=== PATIENT | male | born 1980 | race Two or more races ===

== ENCOUNTER 2020-04-29 00:54 | Emergency (ER) | payer OTHER ==
[2020-04-29] MEDS ORDERED: Ondansetron 4 MG/2 ML SDV IVPUSH ONE (01:25)
[2020-04-29] MEDS ORDERED: Sodium Chloride 0.9% 2.5 ML Syringe FLUSH PRN (01:25)
[2020-04-29] MEDS ORDERED: Sodium Chloride 0.9% 10 ML Syringe FLUSH PRN (01:25)
[2020-04-29] MEDS ORDERED: Ketorolac 30 MG/ML SDV IVPUSH ONE (01:25)
[2020-04-29] MEDS ORDERED: Sodium Chloride 0.9% 1,000 ML IV ONE (01:25)
--- NOTE | 2020-04-29 01:59 | CR ---
Indication: Shortness of breath, COVID positive Technique: Chest 1 view Comparison: Chest x-ray 09/05/2019 Findings/Impression: Cardiovascular and mediastinum: Heart size and vasculature are normal in caliber and appearance. Lungs and pleural space: No pleural effusion or pneumothorax. Slight hazy retrocardiac opacity suspicious for pneumonia in this setting. Bones and soft tissues: No acute findings. Dictated by Mariano Evangelista MD @ Apr 29 2020 1:58AM Signed by Dr. Mariano Evangelista @ Apr 29 2020 1:59AM
[2020-04-29 02:02] LABS: BLOOD UREA NITROGEN,BUN 11 mg/dL (7.0-18.0); CARBON DIOXIDE,CO2 26.5 mmol/L (21.0-32.0); CHLORIDE,CL 96 mmol/L (98-107); GLUCOSE RANDOM 94 mg/dL (74-106); POTASSIUM,K 3.5 mmol/L (3.5-5.1); SODIUM,NA 136 mmol/L (136-148)
[2020-04-29] MEDS ORDERED: cefTRIAXone 1 GM in Sodium Chloride 0.9% 50 ML IV ONE (02:12)
[2020-04-29] MEDS ORDERED: Azithromycin 250 MG Tab PO ONE (02:12)
[2020-04-29] MEDS ORDERED: cefTRIAXone 1 GM in Premix Bag 1 BAG IV ONE (02:13)
--- NOTE | 2020-04-29 02:17 | EDM.PDOC ---
ED HPI GENERAL MEDICAL PROBLEM - General Chief Complaint: General Stated Complaint: FEVER FOR 7 DAYS, COVID POSITIVE Time Seen by Provider: 04/29/20 01:15 - History of Present Illness INITIAL COMMENTS - FREE TEXT/NARRATIVE: HISTORY AND PHYSICAL: History of present illness: Is a 39-year-old gentleman who presents ER today secondary to persistent fever x7 days after being diagnosed with coronavirus. Patient is having a cough. Patient denies any nausea or vomiting. Patient has had multiple episodes of loose stool diarrhea. Patient denies any dysuria, frequency, urgency. Patient denies any abdominal discomfort. Patient is complaining of headaches. Patient denies any sore throat. Patient is not complaining of any shortness of breath. Patient denies any history of hypertension, diabetes, liver, lung, kidney problems. Patient denies any tobacco alcohol or drugs. Patient has no known drug allergies. Review of systems: As per history of present illness and below otherwise all systems reviewed and negative. Past medical history: As per history of present illness and as reviewed below otherwise noncontributory. Surgical history: As per history of present illness and as reviewed below otherwise noncontribut ory. Social history: No reported history of drug or alcohol abuse. Family history: As per history of present illness and as reviewed below otherwise noncontributory. Physical exam: Constitutional: Patient is oriented to person, place, and time. Appears well- developed and well-nourished. No distress. HEENT: Moist mucous membranes Head: Normocephalic and atraumatic Eyes: Right eye exhibits no discharge. Left eye exhibits no discharge. No scleral icterus Neck: Normal range of motion. No tracheal deviation present. Cardiovascular: Normal rate and regular rhythm. Pulmonary: Effort normal, no respiratory distress. Abdominal: No distention Musculoskeletal: Normal range of motion Neurologic: Alert and oriented to person, place and time. Skin: [place], warm and dry. Psychiatric: Normal mood and affect. Behavior is normal. Judgment and thought content normal. Nursing note and vital signs have been reviewed Diagnostics: CBC, CMP, urinalysis within normal limits. Pulse ox 98% on room air. Chest x-ray with question retrocardiac infiltrate. Therapeutics: NSS x1 L Zofran 4 mg IV Toradol 30 mg IV Rocephin 1 g IV Zithromax 500 mg p.o. Assessment and plan: This is a 39-year-old gentleman who presents ER today who is positive for coronavirus with persistent fever x1 week. Patient's x-ray reveals positive retrocardiac infiltrate. Given persistent fever x1 week we will start antibiotics. Patient be given 1 g of IV Rocephin and Zithromax here in the ED and will be discharged home with Zithromax p.o. Patient is to continue ibuprofen and Tylenol to assist with fever. 1. Your COVID-19 screening is positive. That means you do have the coronavirus and you are considered contagious. Your vital signs and oxygen saturation are well enough that you were able to monitor your symptoms at home. Continue to monitor for trouble breathing, new confusion or inability to arouse, bluish lips or face or any of the other symptoms we discussed -if this occurs please return to the emergency room. 2. Please self quarantine over the next 10 days. Inform any persons that you have been in contact with since you started becoming symptomatic that you have tested positive; they should be made aware and take the appropriate steps as needed. 3. You can take NyQuil during the evening to help get a restful night sleep. May alternate Tylenol and ibuprofen as needed for pain and fever management. 4. [facility] will be calling you and following up with you. The [place] COVID 19 Hotline phone number , They are open Tuesday - Tuesday 7am - 7pm. Follow up with your primary care provider for re-evaluation and re-testing after the 10 day quarantine and discuss when you should be seen. Reassessment at the time of disposition demonstrates that the patient is in no acute distress. The patient has remained stable throughout the entire ED visit and is without objective evidence for acute process requiring urgent intervention or hospitalization. The patient is stable for discharge, counseling is provided as documented above, discussed symptomatic treatment and specific conditions for return. I have spoken with the patient/caregiver and discussed todays findings, in addition to providing specific details for the plan of care. Questions are answered and there is agreement with the plan. Definitive disposition and diagnosis as appropriate pending reevaluation and review of above. generalized Pain Score (Numeric/FACES): 5 - Related Data Allergies Allergy/AdvReac Type Severity Reaction Status Date / Time No Known Allergies Allergy Verified 04/29/20 02:03 Home Meds: Home Meds Azithromycin [Zithromax] 250 mg PO DAILY #4 tablet 04/29/20 [Rx] Ibuprofen 600 mg PO Q6HR PRN #30 tablet 04/29/20 [Rx] Past Medical History HEENT History: Reports: None Cardiovascular History: Reports: None Respiratory History: Reports: None Gastrointestinal History: Reports: None Genitourinary History: Reports: None Musculoskeletal History: Reports: None Neurological History: Reports: None Psychiatric History: Reports: None Endocrine/Metabolic History: Reports: None Insulin Pump Model and Manager News: None Hematologic History: Reports: None Immunologic History: Reports: None Oncologic (Cancer) History: Reports: None Dermatologic History: Reports: None - Infectious Disease History Infectious Disease History: Reports: None - Past Surgical History Head Surgeries/Procedures: Reports: None Social & Family History - Family History Family Medical History: Noncontributory - Tobacco Use Tobacco Use Status *Q: Never Tobacco User - Caffeine Use Caffeine Use: Reports: None - Recreational Drug Use Recreational Drug Use: No ED ROS GENERAL - Review of Systems Review Of Systems: See Below ED EXAM, GENERAL - Physical Exam Exam: See Below Course - Vital Signs Last Recorded V/S: Last Vital Signs Temp 97.6 F 04/29/20 02:45 Pulse 74 04/29/20 02:45 Resp 18 04/29/20 02:45 BP 108/80 04/29/20 02:45 Pulse Ox 96 04/29/20 02:45 - Orders/Labs/Meds Labs: Laboratory Tests 04/29/20 04/29/20 04/29/20 Range/Units 01:10 01:36 01:36 WBC 4.12 (4.0-11.0) K/uL RBC 5.76 (4.50-5.90) M/uL Hgb 15.3 (13.0-17.0) g/dL Hct 45.6 (38.0-50.0) % MCV 79.2 L (80.0-98.0) fL MCH 26.6 L (27.0-32.0) pg MCHC 33.6 (31.0-37.0) g/dL RDW Std Deviation 39.4 (28.0-62.0) fl RDW Coeff of Hilda 14 (11.0-15.0) % Plt Count 147 L (150-400) K/uL MPV 9.30 (7.40-12.00) fL Neut % (Auto) 50.8 (48.0-80.0) % Lymph % (Auto) 35.7 (16.0-40.0) % [place] % (Auto) 13.3 (0.0-15.0) % Eos % (Auto) 0.0 (0.0-7.0) % Baso % (Auto) 0.2 (0.0-1.5) % Neut # (Auto) 2.1 (1.4-5.7) K/uL Lymph # (Auto) 1.5 (0.6-2.4) K/uL [place] # (Auto) 0.6 (0.0-0.8) K/uL Eos # (Auto) 0.0 (0.0-0.7) K/uL Baso # (Auto) 0.0 (0.0-0.1) K/uL Sodium 136 (136-148) mmol/L Potassium 3.5 (3.5-5.1) mmol/L Chloride 96 L (98-107) mmol/L Carbon Dioxide 26.5 (21.0-32.0) mmol/L BUN 11 (7.0-18.0) mg/dL Creatinine 1.0 (0.8-1.3) mg/dL Est Cr Clr Drug Dosing 87.13 mL/min Estimated GFR (MDRD) > 60.0 ml/min Glucose 94 (74-106) mg/dL Calcium 8.4 L (8.5-10.1) mg/dL Total Bilirubin 0.4 (0.2-1.0) mg/dL AST 22 (15-37) IU/L ALT 40 (14-63) IU/L Alkaline Phosphatase 63 (46-116) U/L Total Protein 7.9 (6.4-8.2) g/dL Albumin 3.9 (3.4-5.0) g/dL Globulin 4.0 (2.6-4.0) g/dL Albumin/Globulin Ratio 1.0 (0.9-1.6) Urine Color YELLOW Urine Appearance CLEAR Urine pH 6.0 (5.0-8.0) Ur Specific [place] 1.020 (1.001-1.035) Urine Protein TRACE H (NEGATIVE) mg/dL Urine Glucose (UA) NEGATIVE (NEGATIVE) mg/dL Urine Ketones NEGATIVE (NEGATIVE) mg/dL Urine Occult Blood TRACE-INTACT H (NEGATIVE) Urine Nitrite NEGATIVE (NEGATIVE) Urine Bilirubin NEGATIVE (NEGATIVE) Urine Urobilinogen 0.2 (<2.0) EU/dL Ur Leukocyte Esterase NEGATIVE (NEGATIVE) Urine RBC NONE SEEN (0-2/HPF) Urine WBC 0-2 (0-5/HPF) Ur Epithelial Cells RARE (NONE-FEW) Urine Bacteria FEW (NEGATIVE) Urine Mucus LIGHT (NONE-MOD) Meds: Medications Discontinued Medications Generic Name Dose Route Start Last Admin Trade Name Freq PRN Reason Stop Dose Admin Azithromycin 500 mg 04/29/20 02:12 04/29/20 02:20 Zithromax PO 04/29/20 02:13 500 mg Q24H ONE Administration Sodium Chloride 1,000 mls @ 999 mls/hr 04/29/20 01:25 04/29/20 01:37 Normal Saline IV 04/29/20 02:25 999 mls/hr .Bolus ONE Administration Ceftriaxone Sodium 1 gm/ 50 mls @ 200 mls/hr 04/29/20 02:12 04/29/20 02:19 Sodium Chloride IV 04/29/20 02:26 Not Given ONETIME ONE Ceftriaxone Sodium/Dextrose 1 50 mls @ 100 mls/hr 04/29/20 02:13 04/29/20 02:20 gm/ Premix IV 04/29/20 02:42 100 mls/hr ONETIME ONE Administration Ceftriaxone Sodium/Dextrose Confirm 04/29/20 02:16 04/29/20 02:21 Rocephin In Dextrose,Iso-Osm 1 Gm/50 Ml Administered 04/29/20 02:17 Not Given Dose 50 mls @ as directed .ROUTE .STK-MED ONE Ketorolac Tromethamine 30 mg 04/29/20 01:25 04/29/20 01:38 Toradol IVPUSH 04/29/20 01:26 30 mg ONETIME ONE Administration Ondansetron HCl 4 mg 04/29/20 01:25 04/29/20 01:38 Zofran IVPUSH 04/29/20 01:26 4 mg ONETIME ONE Administration Sodium Chloride 10 ml 04/29/20 01:25 Saline Flush FLUSH ASDIRECTED PRN Keep Vein Open Sodium Chloride 2.5 ml 04/29/20 01:25 Saline Flush FLUSH ASDIRECTED PRN Keep Vein Open Departure - Departure Time of Disposition: 02:15 Disposition: Home, Self-Care 01 Condition: Good Clinical Impression: Pneumonia due to 2019 novel coronavirus, Community acquired pneumonia - Discharge Information Prescriptions: Ibuprofen 600 mg PO Q6HR PRN #30 tablet PRN Reason: Pain Azithromycin [Zithromax] 250 mg PO DAILY #4 tablet Instructions: COVID-19 Frequently Asked Questions, COVID-19: How to Protect Yourself and Others - CDC, Community-Acquired Pneumonia, Adult, Prevent the Spread of COVID-19 if You Are Sick - [facility] Referrals: Tatiana Sun, CURRENCY COUNTER [Primary Care Provider] - Forms: ED Department Discharge Additional Instructions: You were seen and evaluated in the ER today for coronavirus. Your x-ray reveals a possible pneumonia. This pneumonia is more than likely secondary to coronavirus however given your persistent fever we will start you on antibiotics to make sure that we are covering for community-acquired pneumonia as well. You have been given a dose of IV Rocephin in the ED and will be started on Zithromax to go home with. 1. Your COVID-19 screening is positive. That means you do have the coronavirus and you are considered contagious. Your vital signs and oxygen saturation are well enough that you were able to monitor your symptoms at home. Continue to monitor for trouble breathing, new confusion or inability to arouse, bluish lips or face or any of the other symptoms we discussed -if this occurs please return to the emergency room. 2. Please self quarantine over the next 10 days. Inform any persons that you have been in contact with since you started becoming symptomatic that you have tested positive; they should be made aware and take the appropriate steps as needed. 3. You can take NyQuil during the evening to help get a restful night sleep. May alternate Tylenol and ibuprofen as needed for pain and fever management. 4. [facility] will be calling you and following up with you. The [place] COVID 19 Hotline phone number , They are open Tuesday - Tuesday 7am - 7pm. Follow up with your primary care provider for re-evaluation and re-testing after the 10 day quarantine and discuss when you should be seen. The following information is given to patients seen in the emergency department who are being discharged to home. This information is to outline your options for follow-up care. We provide all patients seen in our emergency department with a follow-up referral. The need for follow-up, as well as the timing and circumstances, are variable depending upon the specifics of your emergency department visit. If you don't have a primary care physician on staff, we will provide you with a referral. We always advise you to contact your personal physician following an emergency department visit to inform them of the circumstance of the visit and for follow-up with them and/or the need for any referrals to a consulting specialist. The emergency department will also refer you to a specialist when appropriate. This referral assures that you have the opportunity for follow-up care with a specialist. All of these measure are taken in an effort to provide you with optimal care, which includes your follow-up. Under all circumstances we always encourage you to contact your private physician who remains a resource for coordinating your care. When calling for follow-up care, please make the office aware that this follow-up is from your recent emergency room visit. If for any reason you are refused follow-up, please contact the [facility] Emergency Department at and asked to speak to the emergency department charge nurse. [facility] [address] [place] [address] [id number] [address] [id number] Sepsis Event Note (ED) - Evaluation Sepsis Screening Result: No Definite Risk
== END 2020-04-29 02:45 | disposition home or self-care (01) ==
LOC: MW.ED 00:54
DX: U07.1 COVID-19 (principal); J12.89 Other viral pneumonia
CPT/HCPCS: 36415; 71045; 80053; 81001; 85025; 96365; 96375; 99284; A9270; J0696; J1885; J2405; J7030; 99283

== ENCOUNTER 2020-04-30 19:38 | Emergency (ER) | payer OTHER ==
[2020-04-30 20:59] LABS: BLOOD UREA NITROGEN,BUN 8 mg/dL (7.0-18.0); CARBON DIOXIDE,CO2 27.1 mmol/L (21.0-32.0); CHLORIDE,CL 98 mmol/L (98-107); GLUCOSE RANDOM 113 mg/dL (74-106); POTASSIUM,K 4.4 mmol/L (3.5-5.1); SODIUM,NA 134 mmol/L (136-148)
[2020-04-30] MEDS ORDERED: Famotidine 20 MG Tab PO ONE (21:10)
--- NOTE | 2020-04-30 21:21 | EDM.PDOC ---
ED HPI GENERAL MEDICAL PROBLEM - General Chief Complaint: Respiratory Problem Stated Complaint: COVID, LOW OXYGEN Time Seen by Provider: 04/30/20 19:48 - History of Present Illness INITIAL COMMENTS - FREE TEXT/NARRATIVE: CHIEF COMPLAINT(S): "I have decreased appetite." HISTORY OF PRESENT ILLNESS: This is a 39-year-old man without any significant past medical history who presented to our emergency department yesterday and was diagnosed with Covid and possible retrocardiac pneumonia who is on antibiotics who comes to the emergency department with a chief complaint of "I have decreased appetite." The patient states that since being discharged yesterday he has had continued decreased appetite. He states that he has been tolerating some fluids but does not have an appetite to eat food. He states that he has continued to have diarrhea approximately 3 times per day which is liquidy without any blood. He denies any nausea or vomiting but states that he does feel mildly short of breath and has some epigastric tenderness. He denies any chest pain, diaphoresis. He states that he has been taking ibuprofen, Tylenol, and the antibiotics he was prescribed. He denies any radiation of his epigastric pain and describes it as dull and achy not associated with any other symptoms. He denies any relieving factors. He states that this pain has been going on since the whole time he has been sick. He states that the similar pain to yesterday and that he is feeling the same as yesterday. REVIEW OF SYSTEMS: Constitutional: Positive for decreased appetite. Denies fever, chills. Eyes: Denies eye pain Ears, Nose, Mouth, & Throat: Denies earache Cardiovascular: Denies chest pain Respiratory: Positive for shortness of breath Gastrointestinal: Positive for diarrhea and epigastric abdominal pain. Denies nausea, vomiting, melena, hematochezia, hematemesis Genitourinary: Denies hematuria Skin:Denies a rash Neurological: Denies blurred vision, numbness, tingling Psychiatric: Denies depression PAST MEDICAL HISTORY: As per history of present illness and as reviewed below otherwise noncontributory. SURGICAL HISTORY: As per history of present illness and as reviewed below otherwise noncontributory. SOCIAL HISTORY: As per history of present illness and as reviewed below otherwise noncontributory. FAMILY HISTORY: As per history of present illness and as reviewed below otherwise noncontributory. EXAMINATION OF ORGAN SYSTEMS/BODY AREAS: Constitutional: Blood pressure was 125/85, heart rate 117, respiratory rate 18 with an oxygen saturation 95% on room air. Temperature 36.8 General: Overall well-appearing man who is in no acute distress Psychiatric: Appropriate mood and affect. Eyes: No scleral icterus or conjunctival erythema ENMT: Mildly dry mucous membranes. No pharyngeal erythema. Bilateral nasal turbinates clear without any erythema or drainage. Bilateral tympanic membranes clear without any effusion or bulging Cardiovascular: Tachycardic but regular no gallops, murmurs, or rubs. Bilateral upper extremity pulses symmetric and intact. No peripheral edema. No JVD. Respiratory: Lungs clear to auscultation bilaterally. No wheezes, rales, or rhonchi. Speaking in full sentences. No increased work of breathing. Gastrointestinal: Soft, non-tender, non-distended. Normoactive bowel sounds no rebound or guarding. Genitourinary: No suprapubic tenderness Musculoskeletal: Normal range of motion. Skin: No lesions or abrasions. Neurological: Alert, GCS 15 MEDICAL DECISION MAKING AND COURSE IN THE ED WITH INTERPRETATION/REVIEW OF DIAGNOSTIC STUDIES: This is a 39-year-old man with a recent diagnosis of COVID- 19 and retrocardiac pneumonia on azithromycin who comes to the emergency department with decreased appetite with continued diarrhea and some mild shortness of breath who has a normal examination except for some mild dehydration on examination who is tachycardic but saturating well on room air. I did review the patient's chart yesterday and he did have normal labs with a positive Covid test. At this time I do not really believe repeat CBC or Covid tests are indicated. Will obtain a repeat CMP to look for electrolyte abnormalities. Also obtain a D-dimer as the patient is tachycardic and obtain an EKG given that we know that there can be coagulopathy with COVID-19. The patient is able to tolerate p.o. therefore we will provide the patient with Gatorade and encourage p.o. toleration. I do not believe any further work-up is indicated. Given the epigastric tenderness he is describing we will provide the patient with famotidine by mouth. This could be secondary to NSAID use. Twelve-lead EKG interpreted by myself. Sinus tachycardia at a rate of 100beats per minute. Normal axis. AL interval is 168ms. QRS duration is 86ms. ST segments are normal without elevations or depressions. No Q waves present. Hypertrophy not noted. No prior EKG. Interpretation: Sinus tachycardia PERC Rule Age (>/=50): No (0) HR (>/=100): Yes (1) SaO2 on RA <95%: No (0) Unilateral Leg Swelling: No (0) Hemoptysis: No (0) Surgery/Trauma in last month requiring general anesthesia: No (0) Prior PE or DVT: : No (0) Hormone Use: No (0) PERC positive Since PERC Positive, we will obtain a D-dimer to further evaluate for PE Laboratory: CMP reveals hyponatremia at 134 and hyperglycemia at 113 with mildly decreased calcium at 7.8 otherwise unremarkable. D-dimer is negative. After labs I did reevaluate the patient. At this time he continued to remain stable with an improved heart rate. Given that his electrolytes are unchanged and he has no acidosis I do not believe any further work-up is indicated. I did encourage the patient to remain taking in adequate p.o. and to continue use with Tylenol and Motrin for antipyretic and pain relief. I encouraged him to continue taking his antibiotics. In addition I also prescribed the patient with famotidine I discussed that if you are to have any new or worsening symptoms that he should return to the emergency department. He was amenable to discharge at this time and had no further questions. DISPOSITION: The patient was discharged home in stable condition. The patient will follow up with PCP within 1 week CONDITION: Fair PROCEDURES: None FINAL IMPRESSION(S)/DIAGNOSES: 1. Acute diarrhea secondary to COVID-19 2. Acute COVID-19 infection Corbin Almonte M.D. - Related Data Allergies Allergy/AdvReac Type Severity Reaction Status Date / Time No Known Allergies Allergy Verified 04/30/20 19:50 Home Meds: Home Meds Azithromycin [Zithromax] 250 mg PO DAILY #4 tablet 04/29/20 [Rx] Ibuprofen 600 mg PO Q6HR PRN #30 tablet 04/29/20 [Rx] Famotidine 40 mg PO BEDTIME #30 tablet 04/30/20 [Rx] Past Medical History - Past Health History Medical/Surgical History: Denies Medical/Surgical History HEENT History: Reports: None Cardiovascular History: Reports: None Respiratory History: Reports: None Gastrointestinal History: Reports: None Genitourinary History: Reports: None Musculoskeletal History: Reports: None Neurological History: Reports: None Psychiatric History: Reports: None Endocrine/Metabolic History: Reports: None Insulin Pump Model and Manager Post: None Hematologic History: Reports: None Immunologic History: Reports: None Oncologic (Cancer) History: Reports: None Dermatologic History: Reports: None - Infectious Disease History Infectious Disease History: Reports: None - Past Surgical History Head Surgeries/Procedures: Reports: None Social & Family History - Family History Family Medical History: Noncontributory - Caffeine Use Caffeine Use: Reports: Coffee - Recreational Drug Use Recreational Drug Use: No ED ROS GENERAL - Review of Systems Review Of Systems: See Below ED EXAM, GENERAL - Physical Exam Exam: See Below Course - Vital Signs Last Recorded V/S: Last Vital Signs Temp 36.8 C 04/30/20 19:50 Pulse 93 04/30/20 21:13 Resp 18 04/30/20 21:13 BP 113/71 04/30/20 21:13 Pulse Ox 95 04/30/20 21:13 - Orders/Labs/Meds Labs: Laboratory Tests 04/30/20 04/30/20 Range/Units 20:20 20:20 D-Dimer, Quantitative 0.33 (0.0-0.50) mg/L FEU Sodium 134 L (136-148) mmol/L Potassium 4.4 (3.5-5.1) mmol/L Chloride 98 (98-107) mmol/L Carbon Dioxide 27.1 (21.0-32.0) mmol/L BUN 8 (7.0-18.0) mg/dL Creatinine 0.9 (0.8-1.3) mg/dL Est Cr Clr Drug Dosing 96.81 mL/min Estimated GFR (MDRD) > 60.0 ml/min Glucose 113 H (74-106) mg/dL Calcium 7.8 L (8.5-10.1) mg/dL Total Bilirubin 0.2 (0.2-1.0) mg/dL AST 22 (15-37) IU/L ALT 36 (14-63) IU/L Alkaline Phosphatase 59 (46-116) U/L Total Protein 7.5 (6.4-8.2) g/dL Albumin 3.5 (3.4-5.0) g/dL Globulin 4.0 (2.6-4.0) g/dL Albumin/Globulin Ratio 0.9 (0.9-1.6) Meds: Medications Discontinued Medications Generic Name Dose Route Start Last Admin Trade Name Efrain PRN Reason Stop Dose Admin Famotidine 20 mg 04/30/20 21:10 04/30/20 21:20 Pepcid PO 04/30/20 21:11 20 mg ONETIME ONE Administration Departure - Departure Time of Disposition: 21:18 Disposition: Home, Self-Care 01 Condition: Fair Clinical Impression: COVID-19, Diarrhea due to COVID-19 - Discharge Information *PRESCRIPTION DRUG MONITORING PROGRAM REVIEWED*: No *COPY OF PRESCRIPTION DRUG MONITORING REPORT IN PATIENT TANIA: No Prescriptions: Famotidine 40 mg PO BEDTIME #30 tablet Instructions: COVID-19 Frequently Asked Questions, Diarrhea, Adult, [id number] Referrals: Tatiana Sun OPEN DIE INSPECTOR [Primary Care Provider] - Forms: ED Department Discharge Additional Instructions: The patient is informed of any results of their evaluation and diagnostic workup and all questions are answered. They are given discharge instructions and return precautions. The patient is stable for discharge. The patient states they understand and agree with the plan and that they will return if their symptoms get worse or if they have any new concerns. The following information is given to patients seen in the emergency department who are being discharged to home. This information is to outline your options for follow-up care. We provide all patients seen in our emergency department with a follow-up referral. The need for follow-up, as well as the timing and circumstances, are variable depending upon the specifics of your emergency department visit. If you don't have a primary care physician on staff, we will provide you with a referral. We always advise you to contact your personal physician following an emergency department visit to inform them of the circumstance of the visit and for follow-up with them and/or the need for any referrals to a consulting specialist. The emergency department will also refer you to a specialist when appropriate. This referral assures that you have the opportunity for follow-up care with a specialist. All of these measure are taken in an effort to provide you with optimal care, which includes your follow-up. Under all circumstances we always encourage you to contact your private physician who remains a resource for coordinating your care. When calling for follow-up care, please make the office aware that this follow-up is from your recent emergency room visit. If for any reason you are refused follow-up, please contact the [facility] Emergency Department at and asked to speak to the emergency department charge nurse. Please continue to take azithromycin as prescribed and continue to maintain adequate fluid intake. If solid foods are hard to eat please continue with a liquid diet. Diarrhea is a common symptom of COVID-19 and your work-up today reveals that your electrolytes are within normal limits. Your oxygen saturation today was normal. I would continue to monitor your oxygen saturation with home pulse ox meter. If your oxygen level is less than 90% continuously I would return to the emergency department. Please follow-up with your primary care physician. Return for any new or worsening symptoms. Take famotidine at bedtime. This is an antacid and may help given that you have been taking ibuprofen Sepsis Event Note (ED) - Evaluation Sepsis Screening Result: No Definite Risk - Focused Exam Vital Signs: Vital Signs Temp Pulse Resp BP Pulse Ox 04/30/20 21:13 93 18 113/71 95 04/30/20 19:50 36.8 C 117 H 18 125/85 95
== END 2020-04-30 21:20 | disposition home or self-care (01) ==
LOC: MW.ED 19:38
DX: U07.1 COVID-19 (principal)
CPT/HCPCS: 36415; 80053; 85379; 93005; 99285; A9270; 93010; 99283

== ENCOUNTER 2020-05-02 11:41 | Observation (INO) | payer OTHER ==
[2020-05-02] MEDS ORDERED: Sodium Chloride 0.9% 10 ML SDV IV PRN (14:04)
[2020-05-02] MEDS ORDERED: Ondansetron 4 MG/2 ML SDV IVPUSH PRN (14:04)
[2020-05-02] MEDS ORDERED: Acetaminophen 325 MG Tab PO PRN (14:04)
[2020-05-02] MEDS ORDERED: Sodium Chloride 0.9% 2.5 ML Syringe FLUSH PRN (14:04)
[2020-05-02] MEDS ORDERED: Sodium Chloride 0.9% 10 ML Syringe FLUSH PRN (14:04)
[2020-05-02] MEDS ORDERED: Lactated Ringers 1,000 ML IV SCH (14:15)
--- NOTE | 2020-05-02 14:18 | PCM.HP.2 ---
H&P History of Present Illness - General Date of Service: 05/02/20 Admit Problem/Dx: Admission Diagnosis/Problem Admission Diagnosis/Problem Dehydration Source of Information: Patient History Limitations: Reports: No Limitations - History of Present Illness Initial Comments - Free Text/Narative: 39-year-old male presents complaining of fevers, chills, SOB and cough for the past 2 weeks. He has a PMH of latent TB and HLD. Patient tested positive for COVID-19 on 04/23. He was diagnosed with pneumonia and finished a course of azithromycin yesterday. He reports that his symptoms have not been improving and now has had diarrhea for the past 4 days. He reports having 3-4 watery loose stools daily. He has not been able to eat very much as he has had no appetite. He denies having any chest pain, vomiting, blood in stool, blood in urine, numbness or tingling in extremities. Patient was directly admitted from the respiratory clinic. Reports occasional alcohol use, denies tobacco or illicit drug use. 0 Pain Score (Numeric/FACES): 0 - Related Data Allergies/Adverse Reactions: Allergies Allergy/AdvReac Type Severity Reaction Status Date / Time No Known Allergies Allergy Verified 05/02/20 14:13 Home Medications: Home Meds Azithromycin [Zithromax] 250 mg PO DAILY #4 tablet 04/29/20 [Rx] Ibuprofen 600 mg PO Q6HR PRN #30 tablet 04/29/20 [Rx] Famotidine 40 mg PO BEDTIME #30 tablet 04/30/20 [Rx] Past Medical History - Past Health History Medical/Surgical History: Denies Medical/Surgical History HEENT History: Reports: None Cardiovascular History: Reports: High Cholesterol Respiratory History: Reports: None Gastrointestinal History: Reports: None Genitourinary History: Reports: None Musculoskeletal History: Reports: None Neurological History: Reports: None Psychiatric History: Reports: None Endocrine/Metabolic History: Reports: Other (See Below) Other Endocrine/Metabolic History: Prediabetic Insulin Pump Model and Customer Service Sales Consultant: None Hematologic History: Reports: None Immunologic History: Reports: None Oncologic (Cancer) History: Reports: None Dermatologic History: Reports: None - Infectious Disease History Infectious Disease History: Reports: Chicken Pox, Measles, Mumps - Past Surgical History Head Surgeries/Procedures: Reports: None Social & Family History - Family History Family Medical History: Noncontributory - Tobacco Use Tobacco Use Status *Q: Never Tobacco User Second Hand Smoke Exposure: No - Caffeine Use Caffeine Use: Reports: Coffee, Energy Drinks, Tea - Recreational Drug Use Recreational Drug Use: No H&P Review of Systems - Review of Systems: Review Of Systems: Comprehensive ROS is negative, except as noted in HPI. Exam - Exam Exam: See Below - Vital Signs Weight: 71.033 kg - Exam General: Alert, Oriented, Cooperative, Other (NAD) HEENT: Conjunctiva Clear, Hearing Intact, Pupils Equal, Pupils Reactive Neck: Supple, Trachea Midline Lungs: Clear to Auscultation, Normal Respiratory Effort Cardiovascular: Regular Rhythm, Tachycardia GI/Abdominal Exam: Normal Bowel Sounds, Soft, Non-Tender, No Distention Extremities: Normal Inspection, No Pedal Edema Peripheral Pulses: 2+: Radial (L), Radial (R) Skin: Warm, Dry, Intact Neurological: Cranial Nerves Intact, Strength Equal Bilateral, Normal Speech, Normal Tone Neuro Extensive - Mental Status: Alert, Oriented x3, Normal Mood/Affect Psychiatric: Alert, Normal Affect, Normal Mood - Patient Data Result Diagrams: 05/02/20 14:28 05/02/20 14:28 Sepsis Event Note - Evaluation Sepsis Screening Result: Sepsis Risk - Problem List (1) COVID-19 SNOMED Code(s): 872053595 ICD Code: U07.1 - COVID-19 Status: Acute Current Visit: No (2) Hyperlipidemia SNOMED Code(s): 70936324 ICD Code: E78.5 - HYPERLIPIDEMIA, UNSPECIFIED Status: Acute Current Visit: Yes (3) Dehydration SNOMED Code(s): 69829467 ICD Code: E86.0 - DEHYDRATION Status: Acute Current Visit: Yes Problem List Initiated/Reviewed/Updated: Yes Orders Last 24hrs: Active Orders 24 hr Category Date Time Status Patient Status [ADT] Routine ADT 05/02/20 14:04 Active EKG 12 Lead [EKG Documentation Completion] [RC] URGENT Care 05/02/20 14:09 Active Oxygen Therapy [RC] PRN Care 05/02/20 14:04 Active Up ad Mariya [RC] ASDIRECTED Care 05/02/20 14:04 Active VTE/DVT Education [RC] PER UNIT ROUTINE Care 05/02/20 14:04 Active Vital Signs [RC] Q4H Care 05/02/20 14:04 Active Regular Diet [DIET] Diet 05/02/20 Lunch Active CBC WITH AUTO DIFF [HEME] Routine Lab 05/02/20 14:10 Ordered COMPREHENSIVE METABOLIC PN,CMP [CHEM] Routine Lab 05/02/20 14:10 Ordered D-DIMER QUANTITATIVE [COAG] Routine Lab 05/02/20 14:10 Ordered MAGNESIUM [CHEM] Urgent Lab 05/02/20 14:11 Ordered PHOSPHORUS [CHEM] Urgent Lab 05/02/20 14:11 Ordered Acetaminophen [TylenoL] Med 05/02/20 14:04 Ordered 650 mg PO Q4H PRN Enoxaparin [Lovenox] Med 05/02/20 21:00 Ordered 40 mg SUBCUT Q24H Lactated Ringers [Ringers, Lactated] 1,000 ml Med 05/02/20 14:15 Ordered IV ASDIRECTED Ondansetron [Zofran] Med 05/02/20 14:04 Ordered 4 mg IVPUSH Q4H PRN Sodium Chloride 0.9% [Normal Saline] Med 05/02/20 14:04 Ordered 10 ml IV ASDIRECTED PRN Sodium Chloride 0.9% [Saline Flush] Med 05/02/20 14:04 Ordered 10 ml FLUSH ASDIRECTED PRN Sodium Chloride 0.9% [Saline Flush] Med 05/02/20 14:04 Ordered 2.5 ml FLUSH ASDIRECTED PRN Peripheral IV Insertion Adult [OM.PC] Routine Oth 05/02/20 14:04 Ordered Resuscitation Status Routine Resus Stat 05/02/20 14:04 Ordered Medication Orders Acetaminophen (Tylenol) 650 mg PO Q4H PRN PRN Reason: Pain (Mild 1-3)/fever Enoxaparin Sodium (Lovenox) 40 mg SUBCUT Q24H ESMER Lactated Ringer's (Ringers, Lactated) 1,000 mls @ 100 mls/hr IV ASDIRECTED ESMER Stop: 05/03/20 00:14 Ondansetron HCl (Zofran) 4 mg IVPUSH Q4H PRN PRN Reason: Nausea Sodium Chloride (Saline Flush) 10 ml FLUSH ASDIRECTED PRN PRN Reason: Keep Vein Open Sodium Chloride (Saline Flush) 2.5 ml FLUSH ASDIRECTED PRN PRN Reason: Keep Vein Open Sodium Chloride (Normal Saline) 10 ml IV ASDIRECTED PRN PRN Reason: IV Use Assessment/Plan Comment:: Assessment and Plan: 1. Acute hypoxic respiratory failure secondary to COVID-19: - Admit to med/surg. Patient on telemetry. Start supplemental oxygen to maintain O2 sat > 94%, Combivent INH q6 ESMER, dexamethasone 6 mg qd, PPI and Remdesivir. Will also start patient on IV levaquin. EKG ordered. Lactate level 2.4. Will give IV LR 500 cc bolus and then give an additional IV LR 500 cc @ 100 cc/hr. Will recheck lactate level. Blood cultures obtained. - Patient given fact sheet for Remdesivir, risks were explained and patient consents to treatment. 2. Dehydration secondary to diarrhea: - Patient to receive IV fluids. Will order c. diff and stool cultures. 3. DVT prophylaxis: - Lovenox 40 mg subcut qd. 4. Past medical history of HLD and latent TB: - Continue home medications. Patient completed course of Rifampin for latent TB.
[2020-05-02] MEDS ORDERED: Pantoprazole 40 MG in Sodium Chloride 0.9% 10 ML IV SCH (14:45)
[2020-05-02] MEDS ORDERED: Lactated Ringers 500 ML IV ONE (14:58)
[2020-05-02] MEDS ORDERED: Lactated Ringers 500 ML IV SCH ×2 (15:00→15:30)
[2020-05-02 15:26] LABS: BLOOD UREA NITROGEN,BUN 7 mg/dL (7.0-18.0); CHLORIDE,CL 96 mmol/L (98-107); GLUCOSE RANDOM 90 mg/dL (74-106); POTASSIUM,K 4.1 mmol/L (3.5-5.1); SODIUM,NA 134 mmol/L (136-148)
[2020-05-02] MEDS ORDERED: Levofloxacin/Dextrose 5%-Water 750 MG in Premix Bag 1 BAG IV SCH (16:00)
[2020-05-02] MEDS: Pantoprazole 40 MG Tab.CR PO SCH (16:12)
[2020-05-02] MEDS: Dexamethasone 4 MG Tab PO SCH (16:12)
--- NOTE | 2020-05-02 16:30 | PCM.SN.2 ---
- Free Text/Narrative Note: Requested for venous access. COVID +. #18 gauge L wrist on 1st attempt. Skin localized with 0.4 ml 1% lidocaine. Flushes well.
--- NOTE | 2020-05-02 16:54 | CR ---
Indication: Hypoxia; COVID-19 positive. Comparison : Chest radiograph 04/29/2020. TECHNIQUE: Portable AP chest. FINDINGS: Normal size cardiac silhouette. Progressive diffuse areas of alveolar consolidation both lungs predominantly in the left lower lobe; diagnostic of COVID-19 infection. No pneumothorax or pleural effusion. IMPRESSION: Multiple patchy areas of alveolar consolidation both lungs more on the left; diagnostic of COVID-19 infection. Dictated by Stanley Myers MD @ May 02 2020 4:51PM Signed by Dr. Stanley Myers @ May 02 2020 4:53PM
[2020-05-02] MEDS: Albuterol/Ipratropium 4 GM Inhalation Spray INH SCH ×2 (17:21→23:54)
[2020-05-02] MEDS: Levofloxacin/Dextrose 5%-Water 750 MG in Premix Bag 1 BAG IV SCH (19:02)
[2020-05-02] MEDS: Enoxaparin 40 MG/0.4 ML Syringe SUBCUT SCH (20:46)
[2020-05-03] MEDS: Albuterol/Ipratropium 4 GM Inhalation Spray INH SCH ×3 (06:25→17:27)
[2020-05-03 06:54] LABS: BLOOD UREA NITROGEN,BUN 12 mg/dL (7.0-18.0); CARBON DIOXIDE,CO2 25.4 mmol/L (21.0-32.0); CHLORIDE,CL 98 mmol/L (98-107); GLUCOSE RANDOM 140 mg/dL (74-106); POTASSIUM,K 4.3 mmol/L (3.5-5.1); SODIUM,NA 135 mmol/L (136-148)
[2020-05-03] MEDS: Dexamethasone 4 MG Tab PO SCH (08:59)
[2020-05-03] MEDS: Pantoprazole 40 MG Tab.CR PO SCH (08:59)
--- NOTE | 2020-05-03 09:28 | PCM.PN ---
- General Info Date of Service: 05/03/20 Subjective Update: Reports feeling more hydrated this morning. Continues to have diarrhea. Shortness of breath on exertion. Tolerating oral diet. - Patient Data Vitals - Most Recent: Last Vital Signs Temp 36.6 C 05/03/20 04:00 Pulse 69 05/03/20 04:00 Resp 20 05/03/20 04:00 BP 118/69 05/03/20 04:00 Pulse Ox 96 05/03/20 04:00 Weight - Most Recent: 71.033 kg I&O - Last 24 Hours: Intake & Output 05/02/20 05/03/20 05/03/20 22:59 06:59 14:59 Intake Total 1300 Output Total 600 Balance 700 Lab Results Last 24 Hours: Laboratory Results - last 24 hr 05/02/20 05/02/20 05/02/20 Range/Units 14:28 14:28 14:28 WBC 6.54 (4.0-11.0) K/uL RBC 5.72 (4.50-5.90) M/uL Hgb 15.2 (13.0-17.0) g/dL Hct 46.6 (38.0-50.0) % MCV 81.5 (80.0-98.0) fL MCH 26.6 L (27.0-32.0) pg MCHC 32.6 (31.0-37.0) g/dL RDW Std Deviation 40.7 (28.0-62.0) fl RDW Coeff of Hilda 14 (11.0-15.0) % Plt Count 210 (150-400) K/uL MPV 10.00 (7.40-12.00) fL Neut % (Auto) 78.7 (48.0-80.0) % Lymph % (Auto) 14.7 L (16.0-40.0) % [place] % (Auto) 6.6 (0.0-15.0) % Eos % (Auto) 0.0 (0.0-7.0) % Baso % (Auto) 0.0 (0.0-1.5) % Neut # (Auto) 5.2 (1.4-5.7) K/uL Lymph # (Auto) 1.0 (0.6-2.4) K/uL [place] # (Auto) 0.4 (0.0-0.8) K/uL Eos # (Auto) 0.0 (0.0-0.7) K/uL Baso # (Auto) 0.0 (0.0-0.1) K/uL Nucleated RBC % 0.0 /100WBC Nucleated RBCs # 0 K/uL D-Dimer, Quantitative 0.41 (0.0-0.50) mg/L FEU Lactate (0.20-2.00) mmol/L Sodium 134 L (136-148) mmol/L Potassium 4.1 (3.5-5.1) mmol/L Chloride 96 L (98-107) mmol/L Carbon Dioxide 28.0 (21.0-32.0) mmol/L BUN 7 (7.0-18.0) mg/dL Creatinine 0.8 (0.8-1.3) mg/dL Est Cr Clr Drug Dosing 108.91 mL/min Estimated GFR (MDRD) > 60.0 ml/min Glucose 90 (74-106) mg/dL Calcium 8.3 L (8.5-10.1) mg/dL Phosphorus 3.0 (2.6-4.7) mg/dL Magnesium 2.3 (1.8-2.4) mg/dL Total Bilirubin 0.4 (0.2-1.0) mg/dL AST 28 (15-37) IU/L ALT 36 (14-63) IU/L Alkaline Phosphatase 68 (46-116) U/L Total Protein 8.5 H (6.4-8.2) g/dL Albumin 4.0 (3.4-5.0) g/dL Globulin 4.5 H (2.6-4.0) g/dL Albumin/Globulin Ratio 0.9 (0.9-1.6) 05/02/20 05/02/20 05/03/20 Range/Units 14:28 19:33 05:50 WBC 2.93 L (4.0-11.0) K/uL RBC 5.37 (4.50-5.90) M/uL Hgb 14.0 (13.0-17.0) g/dL Hct 43.0 (38.0-50.0) % MCV 80.1 (80.0-98.0) fL MCH 26.1 L (27.0-32.0) pg MCHC 32.6 (31.0-37.0) g/dL RDW Std Deviation 39.9 (28.0-62.0) fl RDW Coeff of Hilda 14 (11.0-15.0) % Plt Count 219 (150-400) K/uL MPV 9.50 (7.40-12.00) fL Neut % (Auto) 66.9 (48.0-80.0) % Lymph % (Auto) 25.3 (16.0-40.0) % [place] % (Auto) 7.5 (0.0-15.0) % Eos % (Auto) 0.0 (0.0-7.0) % Baso % (Auto) 0.3 (0.0-1.5) % Neut # (Auto) 2.0 (1.4-5.7) K/uL Lymph # (Auto) 0.7 (0.6-2.4) K/uL [place] # (Auto) 0.2 (0.0-0.8) K/uL Eos # (Auto) 0.0 (0.0-0.7) K/uL Baso # (Auto) 0.0 (0.0-0.1) K/uL Nucleated RBC % 0.0 /100WBC Nucleated RBCs # 0 K/uL D-Dimer, Quantitative (0.0-0.50) mg/L FEU Lactate 2.3 H* 1.3 (0.20-2.00) mmol/L Sodium (136-148) mmol/L Potassium (3.5-5.1) mmol/L Chloride (98-107) mmol/L Carbon Dioxide (21.0-32.0) mmol/L BUN (7.0-18.0) mg/dL Creatinine (0.8-1.3) mg/dL Est Cr Clr Drug Dosing mL/min Estimated GFR (MDRD) ml/min Glucose (74-106) mg/dL Calcium (8.5-10.1) mg/dL Phosphorus (2.6-4.7) mg/dL Magnesium (1.8-2.4) mg/dL Total Bilirubin (0.2-1.0) mg/dL AST (15-37) IU/L ALT (14-63) IU/L Alkaline Phosphatase (46-116) U/L Total Protein (6.4-8.2) g/dL Albumin (3.4-5.0) g/dL Globulin (2.6-4.0) g/dL Albumin/Globulin Ratio (0.9-1.6) 05/03/20 Range/Units 05:50 WBC (4.0-11.0) K/uL RBC (4.50-5.90) M/uL Hgb (13.0-17.0) g/dL Hct (38.0-50.0) % MCV (80.0-98.0) fL MCH (27.0-32.0) pg MCHC (31.0-37.0) g/dL RDW Std Deviation (28.0-62.0) fl RDW Coeff of Hilda (11.0-15.0) % Plt Count (150-400) K/uL MPV (7.40-12.00) fL Neut % (Auto) (48.0-80.0) % Lymph % (Auto) (16.0-40.0) % [place] % (Auto) (0.0-15.0) % Eos % (Auto) (0.0-7.0) % Baso % (Auto) (0.0-1.5) % Neut # (Auto) (1.4-5.7) K/uL Lymph # (Auto) (0.6-2.4) K/uL [place] # (Auto) (0.0-0.8) K/uL Eos # (Auto) (0.0-0.7) K/uL Baso # (Auto) (0.0-0.1) K/uL Nucleated RBC % /100WBC Nucleated RBCs # K/uL D-Dimer, Quantitative (0.0-0.50) mg/L FEU Lactate (0.20-2.00) mmol/L Sodium 135 L (136-148) mmol/L Potassium 4.3 (3.5-5.1) mmol/L Chloride 98 (98-107) mmol/L Carbon Dioxide 25.4 (21.0-32.0) mmol/L BUN 12 (7.0-18.0) mg/dL Creatinine 0.9 (0.8-1.3) mg/dL Est Cr Clr Drug Dosing 96.81 mL/min Estimated GFR (MDRD) > 60.0 ml/min Glucose 140 H (74-106) mg/dL Calcium 8.5 (8.5-10.1) mg/dL Phosphorus (2.6-4.7) mg/dL Magnesium (1.8-2.4) mg/dL Total Bilirubin 0.4 (0.2-1.0) mg/dL AST 40 H (15-37) IU/L ALT 68 H (14-63) IU/L Alkaline Phosphatase 72 (46-116) U/L Total Protein 7.8 (6.4-8.2) g/dL Albumin 3.3 L (3.4-5.0) g/dL Globulin 4.5 H (2.6-4.0) g/dL Albumin/Globulin Ratio 0.7 L (0.9-1.6) Mihai Results Last 24 Hours: Microbiology 05/02/20 21:00 C. difficile Antigen & Toxins A,B - Final Stool / Feces 05/02/20 14:43 Anaerobic Blood Culture - Final Blood - Venous - Lab Draw 05/02/20 14:39 Anaerobic Blood Culture - Final Blood - Venous Med Orders - Current: Current Medications Acetaminophen (Tylenol) 650 mg PO Q4H PRN PRN Reason: Pain (Mild 1-3)/fever Albuterol/Ipratropium (Combivent Respimat) 0 gm INH Q6H [facility] Last Admin: 05/03/20 06:25 Dose: 1 puff Documented by: Dexamethasone (Dexamethasone) 6 mg PO DAILY [facility] Last Admin: 05/03/20 08:59 Dose: 6 mg Documented by: Enoxaparin Sodium (Lovenox) 40 mg SUBCUT Q24H [facility] Last Admin: 05/02/20 20:46 Dose: 40 mg Documented by: Remdesivir 100 mg/ Sodium (Chloride) 100 mls @ 100 mls/hr IV Q24H [facility] Stop: 05/06/20 16:44 Levofloxacin/Dextrose 750 mg/ (Premix) 150 mls @ 100 mls/hr IV Q24H [facility] Last Admin: 05/02/20 19:02 Dose: 100 mls/hr Documented by: Ondansetron HCl (Zofran) 4 mg IVPUSH Q4H PRN PRN Reason: Nausea Pantoprazole Sodium (Protonix) 40 mg PO DAILY [facility] Last Admin: 05/03/20 08:59 Dose: 40 mg Documented by: Sodium Chloride (Saline Flush) 10 ml FLUSH ASDIRECTED PRN PRN Reason: Keep Vein Open Sodium Chloride (Saline Flush) 2.5 ml FLUSH ASDIRECTED PRN PRN Reason: Keep Vein Open Sodium Chloride (Normal Saline) 10 ml IV ASDIRECTED PRN PRN Reason: IV Use Discontinued Medications Lactated Ringer's (Ringers, Lactated) 1,000 mls @ 100 mls/hr IV ASDIRECTED [facility] Stop: 05/03/20 00:14 Lactated Ringer's (Ringers, Lactated) 500 mls @ 999 mls/hr IV .BOLUS ONE Stop: 05/02/20 15:28 Last Admin: 05/02/20 16:23 Dose: 999 mls/hr Documented by: Lactated Ringer's (Ringers, Lactated) 500 mls @ 100 mls/hr IV ASDIRECTED [facility] Stop: 05/02/20 19:59 Lactated Ringer's (Ringers, Lactated) 500 mls @ 100 mls/hr IV ASDIRECTED [facility] Stop: 05/02/20 20:29 Remdesivir 200 mg/ Sodium (Chloride) 250 mls @ 250 mls/hr IV ONETIME ONE Stop: 05/02/20 16:44 Last Admin: 05/02/20 17:07 Dose: 250 mls/hr Documented by: Levofloxacin/Dextrose 750 mg/ (Premix) 150 mls @ 100 mls/hr IV Q24H [facility] Last Admin: 05/02/20 19:09 Dose: Not Given Documented by: - Exam General: Alert, Oriented, Cooperative, No Acute Distress Lungs: Clear to Auscultation, Normal Respiratory Effort Cardiovascular: Regular Rate, Regular Rhythm GI/Abdominal Exam: Normal Bowel Sounds, Soft, Non-Tender, No Distention Extremities: Normal Inspection, No Pedal Edema Sepsis Event Note - Evaluation Sepsis Screening Result: Severe Sepsis Risk - Focused Exam Vital Signs: Vital Signs Temp Pulse Resp BP Pulse Ox 05/03/20 04:00 36.6 C 69 20 118/69 96 05/02/20 23:55 36.4 C 93 20 118/73 94 L - Problem List & Annotations (1) COVID-19 SNOMED Code(s): 771071521 Code(s): U07.1 - COVID-19 Status: Acute Current Visit: No (2) Hyperlipidemia SNOMED Code(s): 57884502 Code(s): E78.5 - HYPERLIPIDEMIA, UNSPECIFIED Status: Acute Current Visit: Yes (3) Dehydration SNOMED Code(s): 24377071 Code(s): E86.0 - DEHYDRATION Status: Acute Current Visit: Yes - Problem List Review Problem List Initiated/Reviewed/Updated: Yes - My Orders Last 24 Hours: My Active Orders 05/02/20 Lunch Regular Diet [DIET] 05/02/20 14:04 Patient Status [ADT] Routine Oxygen Therapy [RC] PRN Up ad Mariya [RC] ASDIRECTED VTE/DVT Education [RC] PER UNIT ROUTINE Vital Signs [RC] Q4H Acetaminophen [TylenoL] 650 mg PO Q4H PRN Ondansetron [Zofran] 4 mg IVPUSH Q4H PRN Sodium Chloride 0.9% [Normal Saline] 10 ml IV ASDIRECTED PRN Sodium Chloride 0.9% [Saline Flush] 10 ml FLUSH ASDIRECTED PRN Sodium Chloride 0.9% [Saline Flush] 2.5 ml FLUSH ASDIRECTED PRN Peripheral IV Insertion Adult [OM.PC] Routine Resuscitation Status Routine 05/02/20 14:09 EKG 12 Lead [EKG Documentation Completion] [RC] URGENT 05/02/20 14:19 Telemetry Monitoring [Cardiac Monitoring] [RC] Q8H 05/02/20 14:22 Blood Culture x2 Reflex Set [OM.PC] Stat 05/02/20 14:32 RT Post Treatment Assessment [RC] Click to Edit RT Pre-Treatment Assessment [RC] Click to Edit 05/02/20 14:33 RT Incentive Spirometry [RC] ASDIRECTED 05/02/20 14:39 CULTURE BLOOD [BC] Stat 05/02/20 14:43 CULTURE BLOOD [BC] Stat 05/02/20 14:45 Pantoprazole [ProTONIX] 40 mg PO DAILY dexAMETHasone 6 mg PO DAILY 05/02/20 18:00 Albuterol/Ipratropium [Combivent Respimat] See Dose Instructions INH Q6H 05/02/20 18:30 Levofloxacin/Dextrose 5%-Water [Levaquin in D5W 750 MG/150 ML] 750 mg Premix Bag 1 bag IV Q24H 05/02/20 21:00 STOOL CULTURE/SHIGA TOXIN [MREF] Urgent Enoxaparin [Lovenox] 40 mg SUBCUT Q24H 05/03/20 15:45 Remdesivir (Eua) [Remdesivir (EUA)] 100 mg Sodium Chloride 0.9% [Normal Saline] 100 ml IV Q24H - Plan Plan:: Assessment and Plan: 1. Acute hypoxic respiratory failure secondary to COVID-19: - Continue supplemental oxygen to maintain O2 sat > 94%, Combivent INH q6 [facility], dexamethasone 6 mg qd, PPI and Remdesivir. Patient on Levaquin. Lactate level normalized. - Patient given fact sheet for Remdesivir, risks were explained and patient consents to treatment. 2. Dehydration secondary to diarrhea, improved: - C. diff test was negative. Stool cultures pending. 3. Mild transaminitis likely secondary to Remdesivir administration: - Will continue to monitor. 4. DVT prophylaxis: - Lovenox 40 mg subcut qd. 5. Past medical history of HLD and latent TB: - Continue home medications. Patient completed course of Rifampin for latent TB.
[2020-05-03] MEDS ORDERED: REMDESIVIR (EUA) 100 MG in Sodium Chloride 0.9% 100 ML IV SCH (15:45)
[2020-05-03] MEDS: Levofloxacin/Dextrose 5%-Water 750 MG in Premix Bag 1 BAG IV SCH (18:31)
[2020-05-03] MEDS: Enoxaparin 40 MG/0.4 ML Syringe SUBCUT SCH (20:18)
[2020-05-04] MEDS: Albuterol/Ipratropium 4 GM Inhalation Spray INH SCH ×3 (00:17→11:04)
[2020-05-04 06:58] LABS: BLOOD UREA NITROGEN,BUN 18 mg/dL (7.0-18.0); CARBON DIOXIDE,CO2 25.4 mmol/L (21.0-32.0); CHLORIDE,CL 102 mmol/L (98-107); GLUCOSE RANDOM 147 mg/dL (74-106); POTASSIUM,K 4.1 mmol/L (3.5-5.1); SODIUM,NA 138 mmol/L (136-148)
[2020-05-04] MEDS: Dexamethasone 4 MG Tab PO SCH (08:47)
[2020-05-04] MEDS: Pantoprazole 40 MG Tab.CR PO SCH (08:47)
--- NOTE | 2020-05-04 14:06 | PCM.DCSUM1 ---
Discharge Summary - Hospital Course Diagnosis: Stroke: No - Discharge Data Discharge Date: 05/04/20 Discharge Disposition: Home, Self-Care 01 Condition: Good - Referral to Home Health Primary Care Physician: PCP None - Patient Instructions Diet: Regular Diet as Tolerated Activity: As Tolerated Driving: May Drive Today Showering/Bathing: May Shower Notify Provider of: Fever, Increased Pain, Swelling and Redness, Drainage, Nausea and/or Vomiting - Discharge Plan *PRESCRIPTION DRUG MONITORING PROGRAM REVIEWED*: No *COPY OF PRESCRIPTION DRUG MONITORING REPORT IN PATIENT TANIA: No Prescriptions/Med Rec: dexAMETHasone [Dexamethasone] 6 mg PO DAILY #6 tablet levoFLOXacin [Levaquin] 750 mg PO DAILY #7 tab Home Medications: Home Meds Ibuprofen 600 mg PO Q6HR PRN #30 tablet 04/29/20 [Rx] Famotidine 40 mg PO BEDTIME #30 tablet 04/30/20 [Rx] dexAMETHasone [Dexamethasone] 6 mg PO DAILY #6 tablet 05/04/20 [Rx] levoFLOXacin [Levaquin] 750 mg PO DAILY #7 tab 05/04/20 [Rx] Oxygen Therapy Mode: Room Air - Patient Data Vitals - Most Recent: Last Vital Signs Temp 36.5 C 05/04/20 11:18 Pulse 73 05/04/20 11:18 Resp 18 05/04/20 11:18 BP 119/66 05/04/20 11:18 Pulse Ox 92 L 05/04/20 11:18 Weight - Most Recent: 71.033 kg I&O - Last 24 hours: Intake & Output 05/03/20 05/04/20 05/04/20 22:59 06:59 14:59 Intake Total 1200 700 Output Total 950 700 Balance 250 0 Lab Results - Last 24 hrs: Laboratory Results - last 24 hr 05/04/20 05/04/20 Range/Units 06:25 06:25 WBC 5.79 (4.0-11.0) K/uL RBC 5.55 (4.50-5.90) M/uL Hgb 14.5 (13.0-17.0) g/dL Hct 44.6 (38.0-50.0) % MCV 80.4 (80.0-98.0) fL MCH 26.1 L (27.0-32.0) pg MCHC 32.5 (31.0-37.0) g/dL RDW Std Deviation 40.6 (28.0-62.0) fl RDW Coeff of Hilda 14 (11.0-15.0) % Plt Count 275 (150-400) K/uL MPV 9.20 (7.40-12.00) fL Neut % (Auto) 74.5 (48.0-80.0) % Lymph % (Auto) 15.7 L (16.0-40.0) % [place] % (Auto) 9.8 (0.0-15.0) % Eos % (Auto) 0.0 (0.0-7.0) % Baso % (Auto) 0.0 (0.0-1.5) % Neut # (Auto) 4.3 (1.4-5.7) K/uL Lymph # (Auto) 0.9 (0.6-2.4) K/uL [place] # (Auto) 0.6 (0.0-0.8) K/uL Eos # (Auto) 0.0 (0.0-0.7) K/uL Baso # (Auto) 0.0 (0.0-0.1) K/uL Nucleated RBC % 0.0 /100WBC Nucleated RBCs # 0 K/uL Sodium 138 (136-148) mmol/L Potassium 4.1 (3.5-5.1) mmol/L Chloride 102 (98-107) mmol/L Carbon Dioxide 25.4 (21.0-32.0) mmol/L BUN 18 (7.0-18.0) mg/dL Creatinine 0.9 (0.8-1.3) mg/dL Est Cr Clr Drug Dosing 96.81 mL/min Estimated GFR (MDRD) > 60.0 ml/min Glucose 147 H (74-106) mg/dL Calcium 8.8 (8.5-10.1) mg/dL Total Bilirubin 0.4 (0.2-1.0) mg/dL AST 26 (15-37) IU/L ALT 67 H (14-63) IU/L Alkaline Phosphatase 65 (46-116) U/L Total Protein 8.1 (6.4-8.2) g/dL Albumin 3.3 L (3.4-5.0) g/dL Globulin 4.8 H (2.6-4.0) g/dL Albumin/Globulin Ratio 0.7 L (0.9-1.6) TRAY Results - Last 24 hrs: Microbiology 05/02/20 14:39 Aerobic Blood Culture - Preliminary Blood - Venous NO GROWTH AFTER 1 DAY Anaerobic Blood Culture - Final 05/02/20 14:43 Aerobic Blood Culture - Preliminary Blood - Venous - Lab Draw NO GROWTH AFTER 1 DAY Anaerobic Blood Culture - Final Med Orders - Current: Current Medications Acetaminophen (Tylenol) 650 mg PO Q4H PRN PRN Reason: Pain (Mild 1-3)/fever Albuterol/Ipratropium (Combivent Respimat) 0 gm INH Q6H [facility] Last Admin: 05/04/20 11:04 Dose: 1 puff Documented by: Dexamethasone (Dexamethasone) 6 mg PO DAILY [facility] Last Admin: 05/04/20 08:47 Dose: 6 mg Documented by: Enoxaparin Sodium (Lovenox) 40 mg SUBCUT Q24H [facility] Last Admin: 05/03/20 20:18 Dose: 40 mg Documented by: Remdesivir 100 mg/ Sodium (Chloride) 100 mls @ 100 mls/hr IV Q24H [facility] Stop: 05/06/20 16:44 Last Admin: 05/03/20 15:05 Dose: 100 mls/hr Documented by: Levofloxacin/Dextrose 750 mg/ (Premix) 150 mls @ 100 mls/hr IV Q24H [facility] Last Admin: 05/03/20 18:31 Dose: 100 mls/hr Documented by: Ondansetron HCl (Zofran) 4 mg IVPUSH Q4H PRN PRN Reason: Nausea Pantoprazole Sodium (Protonix) 40 mg PO DAILY [facility] Last Admin: 05/04/20 08:47 Dose: 40 mg Documented by: Sodium Chloride (Saline Flush) 10 ml FLUSH ASDIRECTED PRN PRN Reason: Keep Vein Open Sodium Chloride (Saline Flush) 2.5 ml FLUSH ASDIRECTED PRN PRN Reason: Keep Vein Open Sodium Chloride (Normal Saline) 10 ml IV ASDIRECTED PRN PRN Reason: IV Use Discontinued Medications Lactated Ringer's (Ringers, Lactated) 1,000 mls @ 100 mls/hr IV ASDIRECTED [facility] Stop: 05/03/20 00:14 Lactated Ringer's (Ringers, Lactated) 500 mls @ 999 mls/hr IV .BOLUS ONE Stop: 05/02/20 15:28 Last Admin: 05/02/20 16:23 Dose: 999 mls/hr Documented by: Lactated Ringer's (Ringers, Lactated) 500 mls @ 100 mls/hr IV ASDIRECTED [facility] Stop: 05/02/20 19:59 Lactated Ringer's (Ringers, Lactated) 500 mls @ 100 mls/hr IV ASDIRECTED [facility] Stop: 05/02/20 20:29 Remdesivir 200 mg/ Sodium (Chloride) 250 mls @ 250 mls/hr IV ONETIME ONE Stop: 05/02/20 16:44 Last Admin: 05/02/20 17:07 Dose: 250 mls/hr Documented by: Levofloxacin/Dextrose 750 mg/ (Premix) 150 mls @ 100 mls/hr IV Q24H [facility] Last Admin: 05/02/20 19:09 Dose: Not Given Documented by:
== END 2020-05-04 16:00 | disposition home or self-care (01) ==
LOC: MW.MS 11:41
PROVIDERS: ADMIT Internal Medicine; ATTEND Internal Medicine
DX: U07.1 COVID-19 (principal); E78.5 Hyperlipidemia, unspecified; E78.00 Pure hypercholesterolemia, unspecified; R74.01 Elevation of levels of liver transaminase levels; E86.0 Dehydration; J96.01 Acute respiratory failure with hypoxia; R19.7 Diarrhea, unspecified; Z22.7 Latent tuberculosis; Z79.899 Other long term (current) drug therapy
CPT/HCPCS: 36415; 71045; 80053; 83605; 83735; 84100; 85025; 85379; 87040; 87045; 87046; 87324; 87449; 87899; 93005; 94640; A9270; J1650; J1956; J7050; J7120; J8540; 96365; 96372; 96375; 96376; G0378; G0379